=== PATIENT | male | born 1935 | race Caucasian/White ===

== ENCOUNTER → 2017-03-16 | Outpatient (CLI) | payer OTHER | LOC: CIMAGING 10:19 | PROVIDERS: ATTEND Podiatrist | DX: R60.0 Localized edema (principal) | CPT/HCPCS: 93971-PO ==

== ENCOUNTER → 2017-09-04 | Outpatient (CLI) | payer OTHER ==
[~2017-09-04] MED LIST: IOPAMIDOL (ISOVUE-300) 100 ML BTL ONE
== END ==
LOC: FIMAGING 15:46
PROVIDERS: ATTEND Family Medicine
DX: R91.8 Other nonspecific abnormal finding of lung field (principal); R06.02 Shortness of breath; N13.30 Unspecified hydronephrosis; N26.1 Atrophy of kidney (terminal); K80.20 Calculus of gallbladder without cholecystitis without obstruction; E27.9 Disorder of adrenal gland, unspecified
CPT/HCPCS: Q9967

== ENCOUNTER 2017-09-09 14:21 | Emergency (ER) | payer OTHER ==
--- NOTE | 2017-09-09 14:36 | CPEKG ---
Heart Rate: 74 RR Interval: 811 P-R Interval: 220 QRSD Interval: 100 QT Interval: 392 QTC Interval: 435 P Imperial: 79 QRS Imperial: 0 T Wave Imperial: 122 EKG Severity - ABNORMAL ECG - EKG Impression: SINUS RHYTHM EKG Impression: FIRST DEGREE AV BLOCK EKG Impression: CONSIDER ANTEROSEPTAL INFARCT EKG Impression: ABNORMAL T, CONSIDER ISCHEMIA, LATERAL LEADS Electronically Signed By: Robin Ulrich 09-Sep-2017 14:39:12
[2017-09-09 14:45] VITALS: TEMP 97.9
[2017-09-09 14:48] LABS: PLATELET COUNT 260 10^3/uL (150-400)
[2017-09-09 15:28] LABS: INR 1.02 (0.83-1.16); PROTIME(PATIENT) 13.3 SEC (12.0-15.0)
--- NOTE | 2017-09-09 15:58 | EDPHY ---
H & P Stated Complaint: dyspnea Time Seen by Provider: 09/09/17 14:58 HPI/ROS: 82-year-old male presents complaining of dyspnea on exertion progressive over the last 1 month. He denies leg swelling or leg pain. He has seen his primary care doctor Dr. Sen recently who has done an EKG, CT chest and CT abdomen. Patient denies chest pain or abdominal pain at this time. He does admit that he has quite a slow urinary stream but feels he is able to urinate freely. He denies fevers or chills, nausea vomiting or diarrhea. The EKG was done on 08/14/2017, showing a normal sinus rhythm with occasional PVC and nonspecific ST-T changes in the lateral leads. An EKG done today shows similar findings however no PVCs. CT chest without contrast showed multiple pulmonary nodules CT abdomen and pelvis without contrast showed a markedly distended bladder and neobladder as well as hydroureter/hydronephrosis, no nephrolithiasis Review of systems As per HPI General no fever no chills no weakness, mild fatigue HEENT no eye pain no eye discharge. No eye redness, no sore throat Respiratory no cough, positive dyspnea on exertion Cardiac no chest pain, no peripheral edema GI no abdominal pain, no diarrhea, no constipation, no nausea, no vomiting no flank pain, no hematuria, no dysuria, positive slow urinary stream Musculoskeletal no myalgias, no joint pain Heme no easy bruising, no easy bleeding Endo no polyuria, no polydipsia Skin no rashes, no pruritus Neuro no syncope, no dizziness, no headaches Psych is no suicidal ideation, no homicidal ideation Source: Patient, Family Exam Limitations: No limitations - Personal History Current Tetanus Diphtheria and Acellular Pertussis (TDAP): Yes Tetanus Vaccine Date: 2014 - Medical/Surgical History Hx Asthma: No Hx Chronic Respiratory Disease: No Hx Diabetes: No Hx Cardiac Disease: No Hx Renal Disease: Yes Hx Cirrhosis: No Hx Alcoholism: No Hx HIV/AIDS: No Hx Splenectomy or Spleen Trauma: No Other PMH: hypothyroid,bladder CA, recently found out pulmonary nodules on CT scan chest - Family History Significant Family History: No pertinent family hx - Social History Smoking Status: Never smoked Alcohol Use: Rarely Drug Use: None - Physical Exam Exam: 82-year-old male alert and oriented in no acute distress, nontoxic appearance, afebrile Vital signs stable, normal oxygenation on room air Atraumatic normocephalic Patient partially blind bilateral eyes Nares without drainage Oropharynx no exudate no erythema Neck supple no swelling no JVD Lungs clear to auscultation bilaterally, no wheezing Chest palpable nodule right upper chest, non fluctuant approximately 1 x 1 cm, no erythema Heart regular rate and rhythm without murmur rub or gallop Abdomen nondistended, bowel sounds present, soft, markedly distended palpable bladder, nontender no guarding no rebound Extremities no cyanosis clubbing or edema Skin no rash Constitutional: Initial Vital Signs Heart Rate 73 09/09/17 14:30 Blood Pressure 171/81 H 09/09/17 14:30 O2 Sat (%) 97 09/09/17 14:30 O2 Delivery Mode Room Air Allergies/Adverse Reactions: No Known Allergies Allergy (Verified 09/09/17 14:38) Home Medications: Medication Instructions Recorded Levothyroxine 09/09/17 Medical Decision Making - Diagnostics Imaging Results: Imaging Impressions Chest X-Ray 09/09/17 14:39 Impression: 1. Clear lungs. No acute process. 2. Pulmonary nodules, presumably metastatic disease, are unchanged since 5 days prior. ED Course/Re-evaluation: Patient seen and evaluated for dyspnea on exertion. EKG normal sinus rhythm nonspecific ST-T changes lateral leads, no ST elevation Chest x-ray no consolidation, no effusion no pneumothorax, no CHF Labs CBC with anemia hemoglobin 11 Creatinine 1.9, this is down from 2.4 last week D-dimer elevated 2.47 Troponin negative Impression 1. Dyspnea on exertion Patient recently diagnosed with multiple pulmonary nodules this may be contributing to his dyspnea. However I am concerned with the possibility for pulmonary embolus and therefore recommended that the patient be transferred to a hospital where he could get a ventilation perfusion scan this afternoon. He was unable to get a CT angiogram secondary to elevated creatinine 1.9. There were no signs of pneumonia, bronchitis, congestive heart failure to account for the dyspnea on exertion 2. Markedly dilated bladder, with dilated ureters and hydronephrosis. Consistent with bladder outlet obstruction We attempted to place a [place] but patient has a urethral stricture possibly the source of his bladder outlet obstruction He is able to urinate freely although his stream is quite small per patient I contacted the urologist color control supervisor for his urologist, this was a Dr. Daniels at [facility] ([place], [place]). He stated this is not uncommon for patients with neobladder reconstruction to developed chronic bladder outlet obstruction if they are not followed closely or do not do good self-care such as catheterization. He states that is quite reassuring that the patient's creatinine has been stable. He stated there is no indication based on the CT report and my description of the patient to urgently placed stents that this is very likely of chronic duration possibly even as long as 5 or more years. He advises that the patient follow up with Dr. Truong as soon as possible this week. Plan Patient transferred to [facility] for V/Q scan to address the dyspnea on exertion, accepted in transfer by Dr. Grimaldo. If not admitted to [facility] i.e. if no pulmonary embolus on V/Q scan patient states plan is to follow up with Urology this week he also plans to make appointments with several specialists regarding his pulmonary nodules. Differential Diagnosis: Differential diagnosis considered but not limited to: Dyspnea on exertion Pulmonary embolus, pneumonia, bronchitis, pulmonary nodules/lung cancer, effusion, congestive heart failure Anginal equivalent Urinary retention Nephrolithiasis, bladder outlet obstruction - Data Points Laboratory Results: Laboratory Results 09/09/17 14:45 09/09/17 14:45 09/09/17 09/09/17 09/09/17 14:45 14:45 14:45 WBC RBC Hgb Hct MCV MCH MCHC RDW Plt Count MPV Neut % (Auto) Lymph % (Auto) [place] % (Auto) Eos % (Auto) Baso % (Auto) Nucleat RBC Rel Count Absolute Neuts (auto) Absolute Lymphs (auto) Absolute Monos (auto) Absolute Eos (auto) Absolute Basos (auto) Absolute Nucleated RBC Immature Gran % Immature Gran # PT 13.3 SEC SEC (12.0-15.0) INR 1.02 (0.83-1.16) APTT 28.1 SEC SEC (23.0-38.0) D-Dimer 2.47 ug/mLFEU H ug/mLFEU (0.00-0.50) Sodium 133 mEq/L L mEq/L (135-145) Potassium 4.7 mEq/L mEq/L (3.5-5.2) Chloride 99 mEq/L mEq/L (97-110) Carbon Dioxide 20 mEq/l L mEq/l (22-31) Anion Gap 14 mEq/L mEq/L (8-16) BUN 53 mg/dL H mg/dL (7-23) Creatinine 1.9 mg/dL H mg/dL (0.7-1.3) Estimated GFR 34 Glucose 84 mg/dL mg/dL (70-100) Calcium 9.0 mg/dL mg/dL (8.5-10.4) Troponin I 0.014 ng/mL ng/mL (0.000-0.034) NT-Pro-B Natriuret Pep 219 pg/mL pg/mL (0-450) TSH 2.410 uIU/mL uIU/mL (0.465-4.680) 09/09/17 14:45 WBC 10.32 10^3/uL H 10^3/uL (3.80-9.50) RBC 3.81 10^6/uL L 10^6/uL (4.40-6.38) Hgb 11.6 g/dL L g/dL (13.7-17.5) Hct 34.4 % L % (40.0-51.0) MCV 90.3 fL fL (81.5-99.8) MCH 30.4 pg pg (27.9-34.1) MCHC 33.7 g/dL g/dL (32.4-36.7) RDW 13.6 % % (11.5-15.2) Plt Count 260 10^3/uL 10^3/uL (150-400) MPV 9.3 fL fL (8.7-11.7) Neut % (Auto) 66.6 % % (39.3-74.2) Lymph % (Auto) 17.6 % % (15.0-45.0) [place] % (Auto) 12.1 % % (4.5-13.0) Eos % (Auto) 2.9 % % (0.6-7.6) Baso % (Auto) 0.4 % % (0.3-1.7) Nucleat RBC Rel Count 0.0 % % (0.0-0.2) Absolute Neuts (auto) 6.87 10^3/uL H 10^3/uL (1.70-6.50) Absolute Lymphs (auto) 1.82 10^3/uL 10^3/uL (1.00-3.00) Absolute Monos (auto) 1.25 10^3/uL H 10^3/uL (0.30-0.80) Absolute Eos (auto) 0.30 10^3/uL 10^3/uL (0.03-0.40) Absolute Basos (auto) 0.04 10^3/uL 10^3/uL (0.02-0.10) Absolute Nucleated RBC 0.00 10^3/uL 10^3/uL (0-0.01) Immature Gran % 0.4 % % (0.0-1.1) Immature Gran # 0.04 10^3/uL 10^3/uL (0.00-0.10) PT INR APTT D-Dimer Sodium Potassium Chloride Carbon Dioxide Anion Gap BUN Creatinine Estimated GFR Glucose Calcium Troponin I NT-Pro-B Natriuret Pep TSH Departure - Departure Disposition: Acute Care Hospital Not [facility] Clinical Impression: Dyspnea on exertion, Bladder outlet obstruction, Pulmonary nodules/lesions, multiple Condition: Good Additional Instructions: Follow up with your UROLOGIST this week for chronic bladder outlet obstruction, 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 Go to [facility] ER today for further evaluation of Pulmonary Embolus. If you are released from [facility] you will need to make the appointments as planned with your specialists for further evaluation. Referrals: NONE *PRIMARY CARE P,. [Primary Care Provider] - As per Instructions
[2017-09-09] MEDS ORDERED: LIDOCAINE 2% JELLY 20 ML (UROJECT) ONE (16:15)
[2017-09-09 17:43] VITALS: BP 127/73; PULSE 72; RESP 14; O2SAT 99
== END 2017-09-09 17:25 | disposition short-term general hospital (02) ==
LOC: CED 14:21
DX: R06.09 Other forms of dyspnea (principal); R91.1 Solitary pulmonary nodule; J98.4 Other disorders of lung; N32.0 Bladder-neck obstruction; Z85.51 Personal history of malignant neoplasm of bladder
CPT/HCPCS: 71045-PO; 80048-PO; 83880-PO; 84443-PO; 84484-PO; 85025-PO; 85378-PO; 85610-PO; 85730-PO